=== PATIENT | male | born 1955 | race Caucasian/White ===

== ENCOUNTER → 2016-04-26 | Outpatient (CLI) | payer MEDICARE, OTHER ==
[~2016-04-26] MED LIST: ASPIR 8181 MG PO; BEVESPI INH; BUSPIRONE HCL15 MG PO; CYMBALTA60 MG PO; FENOFIBRATE160 MG PO; IMDUR ER TAB 6060 MG PO; IPRATROPIU0.2 MG/1 M INH; KLOR-CON M1010 MEQ PO; LASIX40 MG PO; LIPITOR TAB 2020 MG PO; LOPRESSOR50 MG PO; NEURONTIN 300300 MG PO; PROVENTIL HFA 61 INH INH; TEMOVATE30 GM TP; VISTARIL 50 MG50 MG PO
== END ==
LOC: CT 09:00
DX: R93.8 Abnormal findings on diagnostic imaging of other specified body structures (principal)
CPT/HCPCS: 36415; 70498; 82565; 84520; J7050; Q9963

== ENCOUNTER 2020-04-27 10:42 | Emergency (ER) | payer MEDICARE, OTHER ==
[~2020-04-27 10:42] MED LIST changes: +ALL DAY ALLERGY10 M2 PO; +FLONASE 0.05% N16 GM; +HYDROCODON-ACE1 EAC4 PO; +LIORESAL TAB 1010 MG PO; +LOPRESSOR 25 MG25 MG PO; +MOBIC15 MG PO; +PLAQUENIL 200200 MG PO; +PLAVIX 75 MG TA75 MG PO; +REMERON30 MG PO; +REXULTI PO; +STOOL SOFT-STI1 EACH PO; +VITAMIN B-121000 MC3 IM
[2020-04-27 12:58] LABS: BUN/CREATININE RATIO 9 (0-10)
[2020-04-27 13:02] LABS: HEMOGLOBIN 14.9 gm/dl (14.0-17.5); RED BLOOD COUNT 5.33 M/UL (4.20-5.50)
[2020-04-27] MEDS ORDERED: ZOFRAN ODT 4 MG4 MG PO (14:31)
[2020-04-27] MEDS ORDERED: OMNICEF 300 MG300 MG PO (14:31)
== END 2020-04-27 14:50 | disposition home or self-care (01) ==
LOC: ER1 10:42
PROVIDERS: Emergency Medicine
DX: N20.0 Calculus of kidney (principal); N39.0 Urinary tract infection, site not specified; E87.6 Hypokalemia; F17.210 Nicotine dependence, cigarettes, uncomplicated; I10 Essential (primary) hypertension; J44.9 Chronic obstructive pulmonary disease, unspecified
CPT/HCPCS: 36415; 80053; 81001; 83690; 85025; 96365; 96375; 99284

== ENCOUNTER → 2020-07-04 | Outpatient (CLI) | payer OTHER ==
[~2020-07-04] MED LIST changes: +OMNICEF 300 MG300 MG PO; +ZOFRAN ODT 4 MG4 MG PO
[2020-07-04 16:59] LABS: HEMOGLOBIN 14.7 gm/dl (14.0-17.5); RED BLOOD COUNT 4.48 M/UL (4.20-5.50); WHITE BLOOD COUNT 10.2 K/UL (4.5-11.0)
[2020-07-04 17:22] LABS: BUN/CREATININE RATIO 9 (0-10)
[2020-07-08 11:14] LABS: CHOLESTEROL, TOTAL 101 mg/dL (100-199); HDL SIZE 10.3 nm (>=9.2); HDL-C 56 mg/dL (>39); HDL-P (TOTAL) 28.9 umol/L (>=30.5); LARGE HDL-P 11.2 umol/L (>=4.8); LARGE VLDL-P 3.4 nmol/L (<=2.7); LDL-C 28 mg/dL (0-99); LDL-P 311 nmol/L (<1000); LP-IR SCORE 36 (<=45); SMALL LDL-P 156 nmol/L (<=527); TRIGLYCERIDES 86 mg/dL (0-149); VLDL SIZE 52.2 nm (<=46.6)
== END ==
LOC: LAB 16:29
PROVIDERS: Emergency Medicine
DX: I12.9 Hypertensive chronic kidney disease with stage 1 through stage 4 chronic kidney disease, or unspecified chronic kidney disease (principal); N18.2 Chronic kidney disease, stage 2 (mild); E78.2 Mixed hyperlipidemia; R53.83 Other fatigue; Z12.5 Encounter for screening for malignant neoplasm of prostate
CPT/HCPCS: 80053; 80061; 83704; 84443; 84550; 85025; G0103

== ENCOUNTER 2020-11-21 00:43 | Emergency (ER) | payer OTHER ==
[2020-11-21 01:11] LABS: HEMOGLOBIN 10.1 gm/dl (14.0-17.5); RED BLOOD COUNT 3.18 M/UL (4.20-5.50); WHITE BLOOD COUNT 11.8 K/UL (4.5-11.0)
== END 2020-11-21 02:43 | disposition short-term general hospital (02) ==
LOC: ER1 00:43
PROVIDERS: Family Medicine
DX: I63.512 Cerebral infarction due to unspecified occlusion or stenosis of left middle cerebral artery (principal); J44.9 Chronic obstructive pulmonary disease, unspecified; I11.9 Hypertensive heart disease without heart failure; E78.5 Hyperlipidemia, unspecified; Z95.1 Presence of aortocoronary bypass graft; F12.90 Cannabis use, unspecified, uncomplicated; R29.706 NIHSS score 6; Z20.822 Contact with and (suspected) exposure to COVID-19; Z79.899 Other long term (current) drug therapy
CPT/HCPCS: 51702; 70450; 70496; 70498; 71045; 80053; 80307; 81001; 82550; 82553; 83874; 84484; 85025; 85610; 85730; 87086; 93005; 94664; 99285; J2997; Q9967; U0002